=== PATIENT | male | born 1970 | race African-American/Black ===

== ENCOUNTER 2016-10-28 07:20 | Emergency (ER) | payer OTHER ==
[~2016-10-28] VITALS: Ht 172.7 cm; Wt 88.6 kg
[~2016-10-28 07:20] MED LIST: GLUCOPHAGE500 MG/TAB PO; KEPPRA 500MG500 MG PO; NO HOME MEDICATIONS
[2016-10-28 07:28] VITALS: TEMP 98.7
[2016-10-28] MEDS ORDERED: ZESTRIL2.5 MG PO (07:31)
[2016-10-28] MEDS ORDERED: GLUCOPHAGE500 MG/TAB PO (07:31)
[2016-10-28 08:53] VITALS: BP 141/90; PULSE 81
== END 2016-10-28 08:53 | disposition home or self-care (01) ==
LOC: COL.ER 07:20
DX: M79.672 Pain in left foot (principal); W17.89XA Other fall from one level to another, initial encounter; Y92.89 Other specified places as the place of occurrence of the external cause; E11.9 Type 2 diabetes mellitus without complications; I10 Essential (primary) hypertension; Z79.84 Long term (current) use of oral hypoglycemic drugs

== ENCOUNTER 2019-07-15 09:13 | Emergency (ER) | payer OTHER ==
[~2019-07-15] VITALS: Ht 172.7 cm; Wt 84.1 kg
[~2019-07-15 09:13] MED LIST changes: +ZESTRIL2.5 MG PO
[2019-07-15 10:18] LABS: COLLECTION METHOD CLEAN CATCH
[2019-07-15 10:29] LABS: BASO % 0.3 % (0.0-2.0); EOS % 0.2 % (0-4.0); GRAN # 10.2 (1.4-6.5); GRAN % 81.6 % (42.2-75.2); HEMATOCRIT 48.1 % (42.0-52.0); HEMOGLOBIN 15.7 g/dl (13.5-18.0); LYMPH # 1.5 (1.2-3.4); LYMPH % 12.1 % (20.0-51.0); MEAN CELL VOLUME 85 fl (80.0-100.0); MEAN CORPUSCULAR HEMOGLOBIN 28 pg (27.0-31.0); MEAN CORPUSCULAR HGB CONC 33 g/dl (33.0-37.0); MEAN PLATELET VOLUME 9.4 fl (7.4-10.4); MONO # 0.7 (0.1-0.6); MONO % 5.2 % (1.7-9.3); PLATELET COUNT 296 K/mm3 (130-400); RED BLOOD COUNT 5.63 M/mm3 (4.20-5.60); REDCELL DISTRIBUTION WIDTH-CV 12.5 % (11.5-14.5)
[2019-07-15 10:33] LABS: MUCOUS Present /lpf; PH 5 (5-8); SQUAMOUS EPITHELIAL 0-2 /hpf; URINE APPEARANCE Clear; URINE BACTERIA None Seen /hpf; URINE BILIRUBIN Negative (NEGATIVE); URINE BLOOD Negative (NEGATIVE); URINE COLOR Yellow; URINE GLUCOSE 3+ (NEGATIVE); URINE KETONE Trace (NEGATIVE); URINE LEUKOCYTE ESTERASE Negative (NEGATIVE); URINE NITRATE Negative (NEGATIVE); URINE PROTEIN(semi-quant) Negative (NEGATIVE); URINE RBC None Seen /hpf; URINE UROBILINOGEN Negative (NEGATIVE)
[2019-07-15 10:36] LABS: ALBUMIN 5.3 gm/dL (3.5-5.0); BILIRUBIN,TOTAL 0.5 mg/dL (0.0-1.0); CALCIUM 9.9 mg/dL (8.4-10.2); CREATININE, serum 0.83 (0.66-1.25); POTASSIUM 4.5 mmol/L (3.4-5.0); TOTAL PROTEIN 8.8 gm/dL (6.4-8.2)
[2019-07-15] MEDS ORDERED: GLUCOTROL 5M5 MG/TAB PO (10:49)
[2019-07-15] MEDS ORDERED: KEPPRA 500MG500 MG PO (10:49)
[2019-07-15 10:52] LABS: PROLACTIN 12.2 ng/mL (3.7-17.9)
[2019-07-15 12:08] VITALS: BP 143/94; PULSE 84; TEMP 98.1
== END 2019-07-15 12:08 | disposition home or self-care (01) ==
LOC: COL.ER 09:13
PROVIDERS: Emergency Medicine
DX: G40.909 Epilepsy, unspecified, not intractable, without status epilepticus (principal); E11.9 Type 2 diabetes mellitus without complications; E11.65 Type 2 diabetes mellitus with hyperglycemia
CPT/HCPCS: J1953; J7030

== ENCOUNTER → 2020-01-07 | Outpatient (CLI) | payer OTHER ==
[~2020-01-07] MED LIST changes: +GLUCOTROL 5M5 MG/TAB PO
== END ==
LOC: ZCOL.LAB 17:22
DX: Z20.828 Contact with and (suspected) exposure to other viral communicable diseases (principal)

== ENCOUNTER 2021-10-07 06:31 | Emergency (ER) | payer SELFPAY ==
[~2021-10-07] VITALS: Ht 172.7 cm; Wt 81.8 kg
[2021-10-07 06:33] VITALS: TEMP 95.9
[2021-10-07 06:56] LABS: BASO # 0.1 K/mm3 (0.0-0.2); BASO % 0.5 % (0.0-2.0); EOS # 0.2 K/mm3 (0.0-0.7); EOS % 1.2 % (0.0-4.0); GRAN # 8.3 K/mm3 (1.4-6.5); GRAN % 57.6 % (42.2-75.2); HEMATOCRIT 40.2 % (42.0-52.0); HEMOGLOBIN 13.3 g/dl (13.5-18.0); LYMPH # 4.8 K/mm3 (1.2-3.4); LYMPH % 33.2 % (20.0-51.0); MEAN CELL VOLUME 85 fl (80.0-100.0); MEAN CORPUSCULAR HEMOGLOBIN 28 pg (27-31); MEAN CORPUSCULAR HGB CONC 33 g/dl (33.0-37.0); MONO # 0.9 K/mm3 (0.1-0.6); MONO % 6.5 % (1.7-9.3); PLATELET COUNT 315 K/mm3 (130-400); RED BLOOD COUNT 4.76 M/mm3 (4.20-5.60); REDCELL DISTRIBUTION WIDTH-CV 13.1 % (11.5-14.5)
[2021-10-07 07:04] LABS: INR 1.2 (0.8-3.0); PROTHROMBIN TIME 13.1 SECONDS (9.7-12.8)
[2021-10-07 07:07] LABS: PARTIAL THROMBOPLASTIN TIME 28.4 SECONDS (26.0-37.0)
[2021-10-07 07:20] LABS: ALANINE AMINOTRANSFERASE 129 U/L (0-55); ALKALINE PHOSPHATASE 66 U/L (40-150); ANION GAP 17 mmol/L (7-16); AST,SGOT 133 U/L (5-34); BILIRUBIN,TOTAL 0.4 mg/dL (0.2-1.2); BLOOD UREA NITROGEN 12 mg/dL (9-21); CALCIUM 9.1 mg/dL (8.4-10.2); CARBON DIOXIDE 18 mmol/L (22-29); CHLORIDE 108 mmol/L (98-107); CREATININE, serum 1.17 mg/dL (0.72-1.25); GLUCOSE 275 mg/dL (70-99); POTASSIUM 3.9 mmol/L (3.5-4.5); SODIUM 143 mmol/L (136-145); TOTAL PROTEIN 6.6 gm/dL (6.2-8.1)
[2021-10-07 07:21] LABS: ALCOHOL(ethanol),MEDICAL < 10 mg/dL (0-10)
[2021-10-07 07:26] LABS: TROPONIN-I < 0.010 ng/mL (0.00-0.033)
[2021-10-07 08:35] VITALS: BP 131/78; PULSE 93
== END 2021-10-07 08:35 | disposition short-term general hospital (02) ==
LOC: COL.ER 06:31
PROVIDERS: Emergency Medicine
DX: R07.9 Chest pain, unspecified (principal); S22.059A Unspecified fracture of T5-T6 vertebra, initial encounter for closed fracture; S22.49XA Multiple fractures of ribs, unspecified side, initial encounter for closed fracture; S36.039A Unspecified laceration of spleen, initial encounter; S36.113A Laceration of liver, unspecified degree, initial encounter; S27.329A Contusion of lung, unspecified, initial encounter; S36.899A Unspecified injury of other intra-abdominal organs, initial encounter; V47.5XXA Car driver injured in collision with fixed or stationary object in traffic accident, initial encounter; Y92.410 Unspecified street and highway as the place of occurrence of the external cause
CPT/HCPCS: J1953; J2405; J3010; J7030; Q9967